=== PATIENT | female | born 1995 | race African-American/Black ===

== ENCOUNTER 2019-06-10 17:09 | Emergency (ER) | payer MEDICAID ==
[~2019-06-10] VITALS: Ht 160 cm; Wt 86.2 kg
[2019-06-10 17:21] VITALS: BP_SYST 123
--- NOTE | 2019-06-10 17:34 | NUR ---
Patient to ER bed 5 to gown for evaluation. Side rails up. Report given to Kena JIMENEZ.
--- NOTE | 2019-06-10 18:00 | NUR ---
Patient AAO x 4 ambulates to ER bed 05 with complaints of 5/10 lower abdominal pain, dysuria, and polyuria since 1030 this AM. Denies N/V and other medical history. Even chest rise and fall with respirations. Will continue to monitor.
[2019-06-10 18:08] VITALS: BP_SYST 118
--- NOTE | 2019-06-10 18:08 | NUR ---
Patient given written and verbal discharge instructions and verbalizes understanding. ER MD Dr. Ruiz discussed with patient the results and treatment provided. Patient in stable condition. ID arm band removed. Rx of Pyridium and Macrobid given. Patient educated on pain management and to follow up with PMD. Pain Scale 5/10. Opportunity for questions provided and answered. Medication side effect fact sheet provided.
--- NOTE | 2019-06-10 18:08 | NUR ---
ER Dr. Ruiz at bedside examining patient.
== END 2019-06-10 18:08 | disposition home or self-care (01) ==
LOC: SED 17:09
DX: R30.0 Dysuria (principal); R31.9 Hematuria, unspecified; R35.0 Frequency of micturition; R39.15 Urgency of urination
CPT/HCPCS: 81002; 81025; 99283